=== PATIENT | female | born 1990 | race Caucasian/White ===

== ENCOUNTER 2018-11-19 17:22 | Emergency (ER) | payer OTHER ==
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
[2018-11-19] MEDS ORDERED: IBUPROFEN 600 MG TAB PO ONE (18:20)
[2018-11-19 19:08] VITALS: BP 115/74
== END 2018-11-19 19:06 | disposition home or self-care (01) ==
DX: S00.93XA Contusion of unspecified part of head, initial encounter (principal); S16.1XXA Strain of muscle, fascia and tendon at neck level, initial encounter; V49.49XA Driver injured in collision with other motor vehicles in traffic accident, initial encounter; Y92.410 Unspecified street and highway as the place of occurrence of the external cause